=== PATIENT | female | born 1975 | race Caucasian/White ===

== ENCOUNTER 2018-06-16 17:23 | Emergency (ER) | payer OTHER, SELFPAY ==
[~2018-06-16] VITALS: Ht 162.6 cm; Wt 96.0 kg
[2018-06-16] MEDS ORDERED: LISI-662 PO (17:35)
[2018-06-16] MEDS ORDERED: HYDR25TA PO (17:35)
[2018-06-16] MEDS ORDERED: AMLO2.5T PO (18:17)
[2018-06-16] MEDS ORDERED: POVIDONE-IODINE 10% 15 ML SOLUTION UD TP ONE (18:30)
[2018-06-16] MEDS ORDERED: BACITRACIN 0.9 GM PACKET OINTMENT TP ONE (18:30)
[2018-06-16] MEDS ORDERED: PERTUSS(ACELL),DIPH,TET VAC/PF 0.5 ML VIAL IM ONE (19:15)
[2018-06-16 20:06] VITALS: BP 134/77
== END 2018-06-16 20:09 | disposition home or self-care (01) ==
LOC: EMS 17:24
DX: S61.102A Unspecified open wound of left thumb with damage to nail, initial encounter (principal); I10 Essential (primary) hypertension; W45.8XXA Other foreign body or object entering through skin, initial encounter; Y93.89 Activity, other specified; Y92.89 Other specified places as the place of occurrence of the external cause; Y99.8 Other external cause status
CPT/HCPCS: 90471; 90715; 99283